=== PATIENT | male | born 1935 | race Two or more races ===

== ENCOUNTER → 2019-05-04 | Outpatient (CLI) | payer MEDICARE | END | disposition home or self-care (01) | LOC: MSC 11:55 | PROVIDERS: ATTEND Anesthesiology | DX: M54.16 Radiculopathy, lumbar region (principal); M62.830 Muscle spasm of back; M40.299 Other kyphosis, site unspecified; G89.4 Chronic pain syndrome; M25.562 Pain in left knee; M25.561 Pain in right knee; C61 Malignant neoplasm of prostate ==